=== PATIENT | female | born 1940 ===

== ENCOUNTER → 2018-03-08 | Outpatient (CLI) | payer OTHER ==
[~2018-03-08] MED LIST: ASCO500 PO; ATOR20 PO; Aspirin EC81 MG PO; CHOL10002 PO; FISH1000 PO; FLAX PO; LANS30EC PO; LISHYD1012 PO; RALO60 PO; [UNRECOGNIZED DRUG - OTHER] PO
== END | disposition home or self-care (01) ==
LOC: PLD 14:29 → LAB SHORT 14:29
DX: D48.5 Neoplasm of uncertain behavior of skin (principal)
CPT/HCPCS: 88305

== ENCOUNTER → 2019-03-15 | Outpatient (CLI) | payer OTHER | END | disposition home or self-care (01) | LOC: LAB SHORT 11:34 → PLD 11:34 | DX: C44.41 Basal cell carcinoma of skin of scalp and neck (principal); C44.319 Basal cell carcinoma of skin of other parts of face | CPT/HCPCS: 88305 ==